=== PATIENT | male | born 1965 | race American Indian/Alaskan Native ===

== ENCOUNTER → 2020-04-22 | Outpatient (CLI) | payer OTHER ==
[2020-04-25 13:21] LABS: Microalb/Creat Ratio UR, Rand 68.919 mg/g (0.000-30.000)
== END | disposition home or self-care (01) ==
LOC: LAB 14:15 → LAB SHORT 14:15
PROVIDERS: Family Medicine
DX: E11.65 Type 2 diabetes mellitus with hyperglycemia (principal)
CPT/HCPCS: 82043; 82570

== ENCOUNTER → 2023-08-14 | Outpatient (CLI) | payer OTHER ==
[2023-08-14 13:13] LABS: Microalb/Creat Ratio UR, Rand 7.482 mg/g (0.000-30.000); Microalbumin, Random Urine 8.38 mg/L (0.000-20.000)
== END ==
LOC: LAB 06:00 → LAB SHORT 06:00
DX: E11.65 Type 2 diabetes mellitus with hyperglycemia (principal)
CPT/HCPCS: 82043; 82570